=== PATIENT | male | born 1945 | race Caucasian/White ===

== ENCOUNTER 2016-03-14 17:44 | Emergency (ER) | payer MEDICAID ==
--- NOTE | 2016-03-14 17:48 | EDPHY ---
H & P HPI/ROS: CHIEF COMPLAINT: Left-sided neglect, slurred speech. HISTORY OF PRESENT ILLNESS: The patient is a 71-year-old male with a history of hypertension, COPD and prior CVA who presents via EMS with left-sided neglect/ paresis and slurred speech. Per EMS he was found facedown in his kitchen by a friend who had been trying to contact him for many hours. He had vomited and was incontinent of urine. His head was resting against the kitchen cabinet. He denies headache or any pain. He was last seen normal 48 hours ago. He was seen in the hospital in 2013 for CVA and is currently taking Plavix and aspirin. REVIEW OF SYSTEMS: A complete 10-point review of systems was performed and is negative except for those items mentioned in the HPI. Past Medical/Surgical History: Hypertension, CVA with residual left-sided weakness in 2013. Social History: Lives alone in own home. Physical Exam: General Appearance: Alert, right gaze preference, tries to answer questions, mumbling speech Head: Abrasion to right side of forehead. Open wound and surrounding indentation of skin to right scalp area. Eyes: Right gaze preference. Unable to gaze past midline. Pupils equal and round, no conjunctival pallor or injection ENT, Mouth: Mucous membranes dry Neck: Normal inspection Respiratory: Lungs are clear to auscultation Cardiovascular: Regular rate and rhythm Gastrointestinal: Abdomen is soft and non-tender Neurological: Alert, right gaze preference, left-sided neglect, motor function LUE/LLE 0/5; RUE/RLE strength 4/5, positive Babinski bilaterally Skin: Warm and dry, some mottling to anterior thighs Extremities: Erythema to bilateral knees. Abrasion to medial aspect of right knee Psychiatric: Unable to assess Constitutional: Initial Vital Signs Heart Rate 116 H 03/14/16 17:49 Respiratory Rate 18 03/14/16 17:49 Blood Pressure 120/83 H 03/14/16 17:49 O2 Sat (%) 94 03/14/16 17:49 O2 Delivery Mode Room Air O2 (L/minute) 2 Allergies/Adverse Reactions: No Known Allergies Allergy (Unverified 06/21/13 13:37) Home Medications: Medication Instructions Recorded Aspirin EC 81 mg (*) 81 mg PO DAILY 03/14/16 Aspirin EC [Aspirin EC 81 mg (*)] 81 mg PO DAILY 03/14/16 Clopidogrel Bisulfate [Plavix (*)] 75 mg PO DAILY 03/14/16 Finasteride [Proscar 5 MG (*)] 5 mg PO DAILY 03/14/16 Linagliptin [Tradjenta] 5 mg PO DAILY 03/14/16 Lisinopril [Zestril 40 mg (*)] 40 mg PO DAILY 03/14/16 Losartan Potassium [Cozaar] 100 mg PO DAILY 03/14/16 Pantoprazole Sodium [Protonix 40mg 40 mg PO DAILY 03/14/16 (*)] Tamsulosin HCl [Flomax 0.4 MG (*)] 0.4 mg PO DAILY 03/14/16 amLODIPine BESYLATE [Norvasc 10 mg 10 mg PO DAILY 03/14/16 (*)] metFORMIN SR [Glucophage XR 500 mg 500 mg PO 03/14/16 (*)] Medical Decision Making - Diagnostics EKG Interpretation: EKG interpreted by me reveals sinus rhythm, rate 80, multiple PVCs, poor R-wave progression, no ST or T segment changes. Imaging: Study: CTA of the head/neck. Indication: Neurological deficits. Results: 1. Findings suspicious for thrombus in the distal right ICA around the carotid siphon with diminished flow in the right ICA as well as in the right MCA distribution. 2. Anterior communicating artery is patent with flow in the right and left anterior cerebral arteries with contribution from the left anterior circulation. 3. Right posterior communicating artery is patent probably supplies some flow into the right middle cerebral artery circulation as well from the posterior cerebral artery on the right. 4. Subacute infarct suspected right MCA distribution involving the right posterior frontal to anterior parietal lobe above the sylvian fissure level. The study was read by the radiologist, Dr. aMrcelino. I viewed the images myself on the PACS system. Chest x-ray reviewed by radiology reveals: 1. Cardiomegaly and pulmonary venous hypertension. No xiao failure. 2. No evidence of aspiration. ED Course/Re-evaluation: I met EMS on arrival and obtained a report from the cloth cutting inspector. Patient is able to follow commands and speak, he is difficult to understand. An IV was established and labs ordered. CT/CTA head and neck ordered. EKG ordered. He was placed on desk monitor. CT angiogram reveals a thrombus in the right ICA and loss of jeffrey-white interface extending from the posterior frontal to the parietal area of the brain. Aspirin 300 mg rectally given. Troponin 8.13. EKG reveals no evidence of ischemia. 1920: Consulted with Dr. Roche, [facility]. She accepts direct admission to neurology ICU at [facility]. d/w pt, agrees to transfer. Serial neurologic exam are unchanged throughout his emergency department stay. Elevated troponin noted. The patient denies chest pain. I reviewed the EKG again and there is no evidence of acute ischemia. Differential Diagnosis: Altered mental status including but not limited to hypoglycemia, infectious process, electrolyte abnormality, head injury and intoxicants. - Data Points Laboratory Results: Laboratory Results 03/14/16 17:45 03/14/16 17:45 03/14/16 03/14/16 17:47 17:45 WBC 16.80 H 10^3/uL (3.80-9.50) RBC 4.79 10^6/uL (4.40-6.38) Hgb 13.4 L g/dL (13.7-17.5) POC Hgb 14.3 L gm/dL (14.5-17.3) Hct 40.6 % (40.0-51.0) POC Hct 42 L % (42.8-50.6) MCV 84.8 fL (81.5-99.8) MCH 28.0 pg (27.9-34.1) MCHC 33.0 g/dL (32.4-36.7) RDW 13.0 % (11.5-15.2) Plt Count 172 10^3/uL (150-400) MPV 10.6 fL (8.7-11.7) Neut % (Auto) 85.3 H % (39.3-74.2) Lymph % (Auto) 5.0 L % (15.0-45.0) [place] % (Auto) 9.0 % (4.5-13.0) Eos % (Auto) 0.0 L % (0.6-7.6) Baso % (Auto) 0.1 L % (0.3-1.7) Nucleat RBC Rel Count 0.0 % (0.0-0.2) Absolute Neuts (auto) 14.33 H 10^3/uL (1.70-6.50) Absolute Lymphs (auto) 0.84 L 10^3/uL (1.00-3.00) Absolute Monos (auto) 1.51 H 10^3/uL (0.30-0.80) Absolute Eos (auto) 0.00 L 10^3/uL (0.03-0.40) Absolute Basos (auto) 0.02 10^3/uL (0.02-0.10) Absolute Nucleated RBC 0.00 10^3/uL (0-0.01) Immature Gran % 0.6 % (0.0-1.1) Immature Gran # 0.10 10^3/uL (0.00-0.10) POC Sodium 143 mEq/L (134-144) Sodium 144 mEq/L (134-144) POC Potassium 3.8 mEq/L (3.3-5.0) Potassium 4.1 mEq/L (3.5-5.2) POC Chloride 106 mEq/L (96-108) Chloride 104 mEq/L (97-110) Carbon Dioxide 17 L mEq/l (22-31) Anion Gap 23 mEq/L (8-16) POC BUN 30 H mg/dL (7-23) BUN 29 H mg/dL (7-23) Creatinine 1.3 mg/dL (0.7-1.3) POC Creatinine 1.3 mg/dL (0.8-1.5) Estimated GFR 54 Glucose 210 H mg/dL (70-100) POC Glucose 211 H mg/dL (70-100) Calcium 9.2 mg/dL (8.5-10.4) Creatine Kinase 9391 H IU/L (0-224) CK-MB (CK-2) Fraction 54.40 H ng/mL (0-3.19) CK-MB (CK-2) % 0.6 % (0.0-4.0) Creatine Kinase Interp NEGATIVE (NEGATIVE) Troponin I 8.130 H ng/mL (0-0.034) Medications Given: Discontinued Medications Aspirin (Aspirin Rectal) 300 mg SD EDNOW ONE Stop: 03/14/16 19:21 Last Admin: 03/14/16 19:30 Dose: 300 mg Sodium Chloride (Ns) 500 mls @ 0 mls/hr IV ONCE ONE PRN Reason: As Directed Stop: 03/14/16 18:13 Last Admin: 03/14/16 18:43 Dose: 500 mls Point of Care Test Results: 03/14/16 17:47 POC Sodium 143 POC Potassium 3.8 POC Chloride 106 POC BUN 30 H POC Creatinine 1.3 POC Glucose 211 H Departure - Departure Disposition: [facility] Clinical Impression: CVA (cerebral vascular accident), Elevated troponin, Acute coronary syndrome, Rhabdomyolysis Condition: Serious Referrals: Patient,NotPresent [Primary Care Provider] - As per Instructions Report Scribed for: Arminda Gannon Report Scribed by: Jesus Waterman Date of Report: 03/14/16 Time of Report: 17:44
[2016-03-14] MEDS ORDERED: IOPAMIDOL (ISOVUE 370) 100 ML BTL IV ONE (18:00)
[2016-03-14 18:03] LABS: % IMMATURE GRANULYOCYTES 0.6 % (0.0-1.1); ADD DIFF? NO; ADD MORPH? NO; ADD SCAN? NO; ATYPICAL LYMPHOCYTE FLAG 0 (0-99); FRAGMENT RBC FLAG 0 (0-99); HEMATOCRIT 40.6 % (40.0-51.0); HEMOGLOBIN 13.4 g/dL (13.7-17.5); LEFT SHIFT FLG 10 (0-99); LIPEMIA HEMOLYSIS FLAG 80 (0-99); MEAN CELL VOLUME 84.8 fL (81.5-99.8); MEAN PLATELET VOLUME 10.6 fL (8.7-11.7); PLATELET CLUMPS FLAG 0 (0-99); PLATELET COUNT 172 10^3/uL (150-400); RED BLOOD CELL COUNT 4.79 10^6/uL (4.40-6.38)
--- NOTE | 2016-03-14 18:07 | CPEKG ---
Heart Rate: 86 RR Interval: 698 P-R Interval: 152 QRSD Interval: 94 QT Interval: 424 QTC Interval: 508 P [place]: 31 QRS [place]: -17 T Wave [place]: 4 EKG Severity - ABNORMAL ECG - EKG Impression: SINUS RHYTHM EKG Impression: MULTIPLE VENTRICULAR PREMATURE COMPLEXES EKG Impression: BORDERLINE LEFT AXIS DEVIATION EKG Impression: BORDERLINE R WAVE PROGRESSION, ANTERIOR LEADS EKG Impression: PROLONGED QT INTERVAL Electronically Signed By: Arminda Gannon 14-Mar-2016 21:25:30
[2016-03-14] MEDS ORDERED: NS 500 ML IV ONE (18:12)
[2016-03-14 18:34] LABS: ANION GAP 23 mEq/L (8-16); CALCIUM 9.2 mg/dL (8.5-10.4); CARBON DIOXIDE 17 mEq/l (22-31); CHLORIDE 104 mEq/L (97-110); CREATININE 1.3 mg/dL (0.7-1.3); GLOMERULAR FILTRATION RATE 54; GLUCOSE 210 mg/dL (70-100); POTASSIUM 4.1 mEq/L (3.5-5.2); SODIUM 144 mEq/L (134-144)
--- NOTE | 2016-03-14 19:05 | DX ---
Portable Chest, Single View 18:44 Hours Indication: Stroke alert. Altered mental status Comparison: Portable chest dated September 26, 2013 Findings: Mild cardiomegaly and mild cephalization suggestive of pulmonary venous hypertension. No fr ank pulmonary edema, consolidation or effusion. Mild diffuse peribronchial thickening is unchanged. Impression: 1. Cardiomegaly and pulmonary venous hypertension. No xiao failure. 2. No evidence of aspiration.
--- NOTE | 2016-03-14 19:07 | CT ---
CT Angiogram of the Head and Neck 1819 hours History: Found down with slurred speech and left-sided paralysis. History of previous CVA 3 years ago . Technique: Spiral imaging was obtained from the aortic arch through the skull during the administrati on of 85 mL Isovue-370 IV contrast. The images were reviewed in multiple planes. Volume rendering was performed by me, as well. Dose reduction techniques were utilized. Findings: CT Angiogram Neck: The aortic arch has a normal contour. There are some scattered plaques at the aort ic arch level. The great vessels off the aortic arch are normal in appearance. The common carotid art zahraa has a normal contour bilaterally. The carotid bulb is normal in appearance without plaque formati on. On the right, there is moderate narrowing of the ICA from the level just above the carotid bulb t hrough the neck and into the skull base with degree of stenosis measuring about 70%. There is no evid ence of calcified or noncalcified plaque associated with this narrowing. There is evidence of thrombu s in the carotid canal on the right with a trickle of flow passing through this. The small caliber of the right ICA could be related to distal obstruction with thrombus versus less likely dissection. Th ere is no evidence of plaque involving the left carotid bulb and ICA with normal enhancement to the s kull base. The origin of the vertebral artery is normal bilaterally. There is no evidence of aneurys m or dissection. Images through the neck demonstrate no significant lymphadenopathy. A few small subcentimeter lymph n odes are seen. The musculature is symmetric. The submandibular glands and parotid glands are normal i n appearance bilaterally. Moderate degenerative disk disease is noted at C5-C6 and at C6-C7. CT Angiogram [place]: There is diminished flow involving the distal ICA on the right at the skull base around the carotid siphon secondary to intraluminal thrombus. There is diminished flow int o the right middle cerebral artery. Some of this contrast enhancement of the right middle cerebral ar niko could be from the left anterior circulation through the anterior communicating artery. There is also a patent posterior communicating artery on the right that could also contribute to the right MCA circulation. There is diminished flow in the middle cerebral artery branches although these appear t o be patent without focal cutoff of flow. The vertebrobasilar system demonstrates normal contrast enh ancement without evidence of stenosis or aneurysm. There is normal branching into the posterior infer ior cerebellar artery, as well as the superior cerebellar artery and posterior cerebral artery branch es. Imaging through the brain demonstrates no evidence of intracranial hemorrhage, subdural collection, o r vascular malformation. Cerebral infarction is suspected right posterior frontal to anterior parieta l lobe just above the sylvian fissure. There is loss of jeffrey-white interface in this region. Impression: 1. Findings suspicious for thrombus in the distal right ICA around the carotid siphon with diminished flow in the right ICA as well as in the right MCA distribution. 2. Anterior communicating artery is patent with flow in the right and left anterior cerebral arteries with contribution from the left anterior circulation. 3. Right posterior communicating artery is patent probably supplies some flow into the right middle c erebral artery circulation as well from the posterior cerebral artery on the right. 4. Subacute infarct suspected right MCA distribution involving the right posterior frontal to anterio r parietal lobe above the sylvian fissure level. Note: All calculations were performed using NASCET criteria. These findings were discussed by telephone with Dr. Arminda aGnnon at 1847hrs.
[2016-03-14] MEDS ORDERED: ASPIRIN RECTAL 300 MG SUPP PR ONE (19:20)
--- NOTE | 2016-03-14 19:26 | CT ---
CT Brain Without Contrast 1816 hours History: Left-sided weakness and aphasia. Slurred speech. Remote stroke 3 years ago.. Technique: Axial computed tomographic images of the brain without contrast. Images were reconstruct ed down to 1.25 mm slice thickness. Dose reduction techniques were utilized. Comparison to prior MRI brain study from September 26, 2013. Findings: There is evidence of loss of the jeffrey-white interface right posterior frontal lobe just abo ve the sylvian fissure with possible involvement of the anterior right parietal lobe superiorly. Find ings are compatible with acute to subacute infarct. The insular cortex is also involved on the right. There are some branch vessels of the middle cerebral artery that demonstrate increased density in th e right sylvian fissure probably representing arterial thrombus. Ventricles, cisterns, and sulci are widened consistent with mild to moderate age-related atrophy. N o hydrocephalus, masses, midline shift/herniation, or subdural hematomas. No intraparenchymal hemorrh age or mass effect. Stable moderate hypodensities are seen in the white matter of bilateral cerebral hemispheres. Arteriosclerotic calcifications are noted associated with distal ICA in the parasellar l ocation bilaterally. Bone windows demonstrate no displaced fractures. Paranasal sinuses and mastoid air cells are clear. Impression: 1. Acute to subacute infarct right middle cerebral artery distribution with loss of jeffrey-white interf marcus right posterior frontal to anterior parietal lobes above the sylvian fissure. 2. Increased density involving the peripheral branch right middle cerebral artery in the sylvian fiss ure compatible with thrombus. 3. Stable moderate microvascular ischemic disease. Stable mild to moderate atrophy These findings were discussed by telephone with Dr. Arminda Gannon at 1846hrs.
[2016-03-14 19:42] VITALS: RESP 28
[2016-03-14 19:51] LABS: CK-MB INTERPRETATION NEGATIVE (NEGATIVE)
[2016-03-14 21:45] VITALS: BP 127/81; PULSE 96; TEMP 98.8; O2SAT 94
== END 2016-03-14 21:45 | disposition short-term general hospital (02) ==
LOC: EDUNIT#
DX: I63.9 Cerebral infarction, unspecified (principal); M62.82 Rhabdomyolysis; I24.9 Acute ischemic heart disease, unspecified; R79.89 Other specified abnormal findings of blood chemistry; I10 Essential (primary) hypertension; J44.9 Chronic obstructive pulmonary disease, unspecified; Z79.82 Long term (current) use of aspirin
CPT/HCPCS: 82947-QW; Q9967